=== PATIENT | female | born 1970 ===

== ENCOUNTER 2022-09-28 17:29 | Observation (INO) ==
[2022-09-28 17:58] LABS: Basophils % 0.7 % (0.0-0.8); Eosinophils # 0.1 10*3/uL (0.0-0.87); Hematocrit 43.1 VOL% (35.7-47.0); Immature Granulocytes % 0.2 %; Immature Granulocytes Absolute 0.01 #; Lymphocytes # 2.4 10*3/uL (1.4-4.0); Lymphocytes % 40.6 % (21.3-54.2); Mean Corpuscular HGB Conc 32.5 GM/DL (32-36); Mean Corpuscular Volume 92.7 FL (87-102); Mean Platelet Volume 10.2 FL (9.6-12.0); Monocytes # 0.5 10*3/uL (0.11-0.8); Monocytes % 8.2 % (1.7-12.7); Neutrophils % 48.3 % (38.7-73.9); Platelet Count 236 T/CUMM (130-400); Red Blood Count 4.65 MC/CUMM (3.8-5.5); Red Cell Distribution Width 12.5 % (9.3-17.3); White Blood Count 5.9 T/CUMM (4-12)
[2022-09-28] MEDS ORDERED: ASPIRIN 325 MG TABLET PO STA (18:13)
[2022-09-28 18:20] LABS: Alanine Aminotransferase 16 U/L (13-56); Albumin 3.9 G/DL (3.4-5.0); Alkaline Phosphatase 133 U/L (45-117); Aspartate Amino Transferase 19 U/L (0-37); Bilirubin,Total < 0.39 MG/DL (0.20-1.00); Blood Urea Nitrogen 13 MG/DL (7-18); Calcium 9.4 MG/DL (8.5-10.1); Carbon Dioxide 28 MMOL/L (21-32); Chloride 104 MMOL/L (98-107); Glucose 113 MG/DL (74-106); Osmolality,Calculated 275.7 MOS/KG (273-304); Potassium 3.7 MMOL/L (3.5-5.1); Sodium 138 MMOL/L (136-145); Total Protein 7.5 G/DL (6.4-8.2)
[2022-09-28 18:27] LABS: PT Patient Result 10.8 SECS (10.1-12.1)
[2022-09-28] MEDS ORDERED: ACETAMINOPHEN 325 MG TABLET PO PRN (19:05)
[2022-09-28] MEDS ORDERED: ENOXAPARIN 40 MG/0.4 ML SYRINGE SUBCUT SCH (22:00)
[2022-09-29 07:39] LABS: Basophils % 0.5 % (0.0-0.8); Eosinophils # 0.2 10*3/uL (0.0-0.87); Eosinophils % 2.9 % (0.00-10.9); Hematocrit 40.6 VOL% (35.7-47.0); Hemoglobin 13.5 GM/DL (12.0-16.0); Lymphocytes # 3.1 10*3/uL (1.4-4.0); Lymphocytes % 52.3 % (21.3-54.2); Mean Corpuscular HGB Conc 33.3 GM/DL (32-36); Mean Corpuscular Volume 92.1 FL (87-102); Mean Platelet Volume 10.4 FL (9.6-12.0); Monocytes # 0.5 10*3/uL (0.11-0.8); Monocytes % 8.1 % (1.7-12.7); Neutrophils % 36.2 % (38.7-73.9); Platelet Count 217 T/CUMM (130-400); Red Blood Count 4.41 MC/CUMM (3.8-5.5); Red Cell Distribution Width 12.5 % (9.3-17.3); White Blood Count 5.9 T/CUMM (4-12)
[2022-09-29 08:07] LABS: Albumin 3.3 G/DL (3.4-5.0); Bilirubin,Total 0.4 MG/DL (0.20-1.00); Calcium 8.8 MG/DL (8.5-10.1); Osmolality,Calculated 278.3 MOS/KG (273-304); Potassium 3.5 MMOL/L (3.5-5.1); Risk Ratio 2.45; Total Protein 6.9 G/DL (6.4-8.2); VLDL Cholesterol 15.8 MG/DL
[2022-09-29 08:10] LABS: Eosinophils 3 % (0-10); Lymphocytes 48 % (20-55); Platelet Estimate Adequate; Total Cells Counted 100
[2022-09-29] MEDS ORDERED: MULTIVITAMIN (CENTRUM) TABLET PO SCH (09:00)
[2022-09-29] MEDS ORDERED: CHOLECALCIFEROL 1,000 UNIT TABLET PO SCH (09:00)
[2022-09-29] MEDS ORDERED: CYANOCOBALAMIN 50 MCG PO SCH (09:00)
[2022-09-29] MEDS ORDERED: NON-FORMULARY MEDICATION (Multivitamin With Minerals [Hair,Skin And Nails] Tablet) PO SCH (09:00)
[2022-09-29] MEDS ORDERED: NON-FORMULARY MEDICATION (Biotin 1 mg Capsule) PO SCH (09:00)
[2022-09-29] MEDS ORDERED: PANTOPRAZOLE 40 MG TABLET PO SCH (09:00)
[2022-09-29] MEDS ORDERED: CONJUGATED ESTROGENS 0.3 MG PO SCH (09:00)
[2022-09-29 09:26] VITALS: BP 142/84
== END 2022-09-29 15:01 | disposition home or self-care (01) ==
LOC: N.EDINP 17:29 → N.ED 17:29 → N.2W 09-29 01:30
PROVIDERS: ADMIT Internal Medicine; ATTEND Internal Medicine